=== PATIENT | male | born 1995 | race Caucasian/White ===

== ENCOUNTER 2019-10-13 12:52 | Emergency (ER) | payer BC, OTHER ==
--- NOTE | 2019-10-13 15:24 | ER ---
Nurse's Notes [facility] Name: Roxana Nixon Age: 24 yrs Sex: Male : 1995 Arrival Date: 10/13/2019 Time: 12:57 Bed 16 Private MD: Diagnosis: Acute upper respiratory infection, unspecified Presentation: 10/12 13:03 Chief complaint: Patient states: JACOB, body aches, chills since last night. Fever 101.9 ll1 at home, had to call into work today. Coronavirus screen: Proceed with normal triage. Patient denies a cough. Patient denies shortness of breath or difficulty breathing. Patient reports a measured and/or subjective temperature greater than 100.4F. Patient denies travel on a cruise ship or to a country the [facility]NOTE 3] currently lists as an affected area. Patient denies contact with known and/or suspected case of COVID-19. Ebola Screen: Patient denies travel to an Ebola-affected area in the 21 days before illness onset. Initial Sepsis Screen: Does the patient meet any 2 criteria? No. Patient's initial sepsis screen is negative. Risk Assessment: Do you want to hurt yourself or someone else? Patient reports no desire to harm self or others. Onset of symptoms was October 12, 2019. 13:03 Method Of Arrival: Ambulatory ll1 13:03 Acuity: CESAR 4 ll1 15:16 Initial Sepsis Screen: Does the patient have a suspected source of infection? Yes: ph Other: possible COVID. Historical: - Allergies: 13:04 No Known Allergies; ll1 - PSHx: 13:04 None; ll1 - Immunization history:: Adult Immunizations unknown. - Social history:: Smoking status: Patient denies any tobacco usage or history of. Patient uses alcohol, occasionally. only on a social basis. Patient/guardian denies using street drugs. Screenin:27 Abuse screen: Denies threats or abuse. Denies injuries from another. Nutritional ph screening: No deficits noted. Tuberculosis screening: No symptoms or risk factors identified. Fall Risk None identified. Assessment: 14:58 General: Appears in no apparent distress. comfortable, Behavior is calm, cooperative, ph appropriate for age, Reports chills for fever for 12-24 hours. Pain: Complains of pain in "all over". Neuro: Level of Consciousness is awake, alert, obeys commands, Oriented to person, place, time, situation. Cardiovascular: Capillary refill < 3 seconds in bilateral fingers Patient's skin is warm and dry. Respiratory: Reports cough that is non-productive, Airway is patent Respiratory effort is even, unlabored, Respiratory pattern is regular, symmetrical. GI: No signs and/or symptoms were reported involving the gastrointestinal system. Derm: Skin is intact, is healthy with good turgor, Skin is dry, Skin is normal, Skin temperature is warm. Musculoskeletal: Circulation, motion, and sensation intact. Range of motion: intact in all extremities. 16:08 Reassessment: Patient appears in no apparent distress at this time. Patient and/or ph family updated on plan of care and expected duration. Pain level reassessed. Patient is alert, oriented x 3, equal unlabored respirations, skin warm/dry/pink. Vital Signs: 13:03 BP 127 / 67; Pulse 89; Resp 17; Temp 99.3; Pulse Ox 97% ; Pain 2/10; ll1 15:15 BP 118 / 70; Pulse 84; Resp 18; Temp 98.7; Pulse Ox 99% on R/A; ph ED Course: 12:57 Patient arrived in ED. mr 13:04 Triage completed. ll1 13:05 Arm band placed on Patient notified of wait time. ll1 13:57 Ivone Morelos RN is Primary Nurse. ph 14:17 Adia Bergman FNP-C is [facility]. kb 14:17 Saulo Longoria MD is Attending Physician. kb 14:27 Patient has correct armband on for positive identification. Bed in low position. Call ph light in reach. Side rails up X 1. Pulse ox on. NIBP on. 15:16 No provider procedures requiring assistance completed. Patient did not have IV access ph during this emergency room visit. Administered Medications: No medications were administered Outcome: 15:23 Discharge ordered by . kb 16:10 Patient left the ED. ph 16:10 Discharged to home ambulatory. ph 16:10 Condition: good 16:10 Discharge instructions given to patient, Instructed on discharge instructions, follow up and referral plans. Demonstrated understanding of instructions, follow-up care. Signatures: Adia Bergman FNP-C FNP-Noni Gonzalez mr Morelos, Ivone, RN RN ph Ruben, Lyny, RN RN ll1
--- NOTE | 2019-10-13 15:24 | EDPHYS ---
Physician Documentation [facility] Name: Roxana Nixon Age: 24 yrs Sex: Male : 1995 Arrival Date: 10/13/2019 Time: 12:57 Bed 16 Private MD: ED Physician Saulo Longoria HPI: 10/12 14:40 This 24 yrs old Male presents to ER via Ambulatory with complaints of Fever. kb 14:40 The patient or guardian reports flu symptoms, low-grade fever, myalgias. Onset: The kb symptoms/episode began/occurred this morning. Severity of symptoms: At their worst the symptoms were mild, in the emergency department the symptoms have improved. Modifying factors: The symptoms are alleviated by nothing, the symptoms are aggravated by nothing. Associated signs and symptoms: Pertinent positives: fever, Pertinent negatives: chest pain, diarrhea, ear ache, nausea, rhinorrhea, sore throat, vomiting. The patient has not experienced similar symptoms in the past. The patient has not recently seen a physician. Pt reports fever, chills, bodyaches and headache that started this morning. . Historical: - Allergies: 13:04 No Known Allergies; ll1 - PSHx: 13:04 None; ll1 - Immunization history:: Adult Immunizations unknown. - Social history:: Smoking status: Patient denies any tobacco usage or history of. Patient uses alcohol, occasionally. only on a social basis. Patient/guardian denies using street drugs. ROS: 14:39 ENT: Negative for injury, pain, and discharge, Cardiovascular: Negative for chest pain, kb palpitations, and edema, Respiratory: Negative for shortness of breath, cough, wheezing, and pleuritic chest pain, Abdomen/GI: Negative for abdominal pain, nausea, vomiting, diarrhea, and constipation, MS/Extremity: Negative for injury and deformity, Skin: Negative for injury, rash, and discoloration. 14:39 Constitutional: Positive for body aches, chills, fever, malaise. 14:39 Neuro: Positive for headache. Exam: 14:39 Constitutional: This is a well developed, well nourished patient who is awake, alert, kb and in no acute distress. Head/Face: Normocephalic, atraumatic. Chest/axilla: Normal chest wall appearance and motion. Nontender with no deformity. No lesions are appreciated. Cardiovascular: Regular rate and rhythm with a normal S1 and S2. No gallops, murmurs, or rubs. Normal PMI, no JVD. No pulse deficits. Respiratory: Lungs have equal breath sounds bilaterally, clear to auscultation and percussion. No rales, rhonchi or wheezes noted. No increased work of breathing, no retractions or nasal flaring. Abdomen/GI: Soft, non-tender, with normal bowel sounds. No distension or tympany. No guarding or rebound. No evidence of tenderness throughout. Skin: Warm, dry with normal turgor. Normal color with no rashes, no lesions, and no evidence of cellulitis. MS/ Extremity: Pulses equal, no cyanosis. Neurovascular intact. Full, normal range of motion. Neuro: Awake and alert, GCS 15, oriented to person, place, time, and situation. Cranial nerves II-XII grossly intact. Motor strength 5/5 in all extremities. Sensory grossly intact. Cerebellar exam normal. Normal gait. Vital Signs: 13:03 BP 127 / 67; Pulse 89; Resp 17; Temp 99.3; Pulse Ox 97% ; Pain 2/10; ll1 15:15 BP 118 / 70; Pulse 84; Resp 18; Temp 98.7; Pulse Ox 99% on R/A; ph MDM: 14:19 Patient medically screened. kb 14:39 Data reviewed: vital signs, nurses notes. Data interpreted: Pulse oximetry: on room air kb is 97 %. Interpretation: normal. Counseling: I had a detailed discussion with the patient and/or guardian regarding: the historical points, exam findings, and any diagnostic results supporting the discharge/admit diagnosis, radiology results, the need for outpatient follow up, a family practitioner, to return to the emergency department if symptoms worsen or persist or if there are any questions or concerns that arise at home. 10/12 14:30 Order name: Flu; Complete Time: 15:23 kb 10/12 14:30 Order name: COVID-19 kb Administered Medications: No medications were administered Disposition: 19:37 Co-signature as Attending Physician, Saulo Longoria MD. [email or web address] Disposition: 10/13/19 15:23 Discharged to Home. Impression: Acute upper respiratory infection, unspecified. - Condition is Stable. - Discharge Instructions: Viral Respiratory Infection, [id number], COVID-19. - Medication Reconciliation Form, Thank You Letter, Antibiotic Education, Prescription Opioid Use, Work release form form. - Follow up: Emergency Department; When: As needed; Reason: Worsening of condition. Follow up: Private Physician; When: 2 - 3 days; Reason: Recheck today's complaints, Continuance of care, Re-evaluation by your physician. Addendum: 10/16/2019 08:56 Addendum: Contacted pt at [phone], notified of positive COVID test, answered questions, r n told health department will contact them with further instructions, patient feeling better. . Signatures: Dispatcher [employer] EDMS Adia Bergman, MECHANICAL DOOR REPAIRER-C MECHANICAL DOOR REPAIRER-Ckb Devon Cheek MD MD rn Ivone Morelos RN RN [facility], CHAPIN Bansal RN 1 Saulo Longoria MD MD 7 Corrections: (The following items were deleted from the chart) 10/12 16:10 15:23 10/13/2019 15:23 Discharged to Home. Impression: Acute upper respiratory ph infection, unspecified. Condition is Stable. Discharge Instructions: Viral Respiratory Infection, [id number], COVID-19. Forms are Medication Reconciliation Form, Thank You Letter, Antibiotic Education, Prescription Opioid Use. Follow up: Emergency Department; When: As needed; Reason: Worsening of condition. Follow up: Private Physician; When: 2 - 3 days; Reason: Recheck today's complaints, Continuance of care, Re-evaluation by your physician. kb
[2019-10-13 16:24] VITALS: BP 127/67; TEMP 99.3; O2SAT 97
== END 2019-10-13 16:10 | disposition home or self-care (01) ==
LOC: ER 12:52
DX: U07.1 COVID-19 (principal); J06.9 Acute upper respiratory infection, unspecified
CPT/HCPCS: 87804 ×2; 99283; U0001

== ENCOUNTER → 2023-05-26 | Emergency (ER) | payer BC ==
[~2023-05-26] MED LIST: ASPIRIN 81 MG CHEWABLE TABLET ONE; NA CHLORIDE 0.9% 1,000 ML ONE
[2023-05-26 03:00] LABS: Protime INR 1.06
[2023-05-26 03:02] LABS: Absolute Lymphocytes (CBC) 2.4 K/uL (0.7-4.9); Hematocrit 43.2 % (39.6-49.0); Lymphocytes % 32.3 % (15.3-44.8); MCV 84.9 fL (80-100); MPV 9.3 fL (7.6-11.3); Platelets 204 thou/uL (152-406); RBC Red Blood Cell Count 5.09 M/uL (4.33-5.43)
[2023-05-26 03:15] LABS: ALT/SGPT 31 U/L (16-61); AST/SGOT 12 U/L (15-37); Albumin 3.7 g/dL (3.4-5.0); Alkaline Phosphatase 88 U/L (45-117); BUN Blood Urea Nitrogen 10 mg/dL (7-18); Bicarbonate 30 mEq/L (21-32); Bilirubin Direct 0.1 mg/dL (0-0.2); Bilirubin Indirect, Calculated 0.5 mg/dL (0.2-0.8); Bilirubin Total 0.6 mg/dL (0.2-1.0); Glomerular Filtration Rate 83 ml/min (=/>90); Glucose Level 99 mg/dL (74-106); Magnesium 1.9 mg/dL (1.6-2.4); Potassium 3.5 mEq/L (3.5-5.1); Protein, Total 7.1 g/dL (6.4-8.2); Sodium Level 139 mEq/L (136-145); Troponin High Sensitivity 6.4 pg/mL (<58.9)
[2023-05-26 03:18] LABS: NT PRO-BNP < 5 pg/mL (<125)
--- NOTE | 2023-05-26 05:06 | ER ---
Nurse's Notes [facility] Name: Roxana Nixon Age: 27 yrs Sex: Male : 1995 Arrival Date: 05/26/2023 Time: 01:51 Bed 18 Private MD: Diagnosis: Chest pain, unspecified;Non cardiac chest pains Presentation: 05/26 02:04 Chief complaint: Patient states: I have been having left upper chest pain for the past jb4 month intermittently. Tonight is the longest it has lasted. Coronavirus screen: At this time, the client does not indicate any symptoms associated with coronavirus-19. Ebola Screen: No symptoms or risks identified at this time. Initial Sepsis Screen: Does the patient meet any 2 criteria? No. Patient's initial sepsis screen is negative. Does the patient have a suspected source of infection? No. Patient's initial sepsis screen is negative. Risk Assessment: Do you want to hurt yourself or someone else? Patient reports no desire to harm self or others. Onset of symptoms was April 20, 2023. Transition of care: patient was not received from another setting of care. 02:04 Method Of Arrival: Ambulatory jb4 02:04 Acuity: CESAR 3 jb4 Historical: - Allergies: 02:05 No Known Allergies; jb4 - PMHx: 02:05 None; jb4 - PSHx: 02:05 None; jb4 - Immunization history:: Adult Immunizations up to date. - Social history:: Smoking status: Patient denies any tobacco usage or history of. - Family history:: not pertinent. Screenin:06 [facility] ED Fall Risk Assessment (Adult) History of falling in the last 3 months, jb4 including since admission No falls in past 3 months (0 pts) Confusion or Disorientation No (0 pts). Abuse screen: Denies threats or abuse. Nutritional screening: No deficits noted. Tuberculosis screening: No symptoms or risk factors identified. Assessment: 02:06 General: Appears in no apparent distress. comfortable, Behavior is calm, cooperative, jb4 appropriate for age. Pain: Complains of pain in anterior aspect of left upper chest Pain does not radiate. Pain currently is 3 out of 10 on a pain scale. Quality of pain is described as throbbing, Pain began 1 month ago. Neuro: Level of Consciousness is awake, alert, obeys commands, Oriented to person, place, time, situation. Cardiovascular: Patient's skin is warm and dry. Respiratory: Airway is patent Respiratory effort is even, unlabored, Respiratory pattern is regular, symmetrical. GI: No signs and/or symptoms were reported involving the gastrointestinal system. : No signs and/or symptoms were reported regarding the genitourinary system. EENT: No signs and/or symptoms were reported regarding the EENT system. Derm: Skin is intact, Skin is pink, warm \T\ dry. Musculoskeletal: Circulation, motion, and sensation intact. Range of motion: intact in all extremities. 03:09 Reassessment: Patient appears in no apparent distress at this time. No changes from km8 previously documented assessment. Patient and/or family updated on plan of care and expected duration. Pain level reassessed. Patient is alert, oriented x 3, equal unlabored respirations, skin warm/dry/pink. 04:15 Reassessment: Patient appears in no apparent distress at this time. No changes from km8 previously documented assessment. Patient and/or family updated on plan of care and expected duration. Pain level reassessed. Patient is alert, oriented x 3, equal unlabored respirations, skin warm/dry/pink. 05:14 Reassessment: Patient appears in no apparent distress at this time. No changes from km8 previously documented assessment. Patient and/or family updated on plan of care and expected duration. Pain level reassessed. Patient is alert, oriented x 3, equal unlabored respirations, skin warm/dry/pink. Vital Signs: 02:04 BP 148 / 91; Pulse 72; Resp 16; Temp 98.7(O); Pulse Ox 100% on R/A; Weight 122.47 kg; jb4 Height 6 ft. 1 in. ; Pain 3/10; 02:30 BP 133 / 88; Pulse 60; Resp 16; Pulse Ox 100% on R/A; km8 03:00 BP 128 / 89; Pulse 67; Resp 16; Pulse Ox 100% on R/A; km8 05:14 BP 133 / 86; Pulse 69; Resp 16; Pulse Ox 100% on R/A; km8 02:04 Body Mass Index 35.62 (122.47 kg, 185.42 cm) [facility] 02:04 Pain Scale: Adult [facility] ED Course: 01:53 Patient arrived in ED. jj6 01:54 Mj Villatoro MD is Attending Physician. sp4 02:05 Triage completed. jb4 02:05 Arm band placed on right wrist. jb4 02:06 Patient has correct armband on for positive identification. Bed in low position. Call jb4 light in reach. Side rails up X 1. Client placed on continuous cardiac and pulse oximetry monitoring. NIBP monitoring applied. monitoring analyst on. 02:06 Patient maintains SpO2 saturation greater than 95% on room air. jb4 02:18 Solange Foreman, RN is Primary Nurse. km8 02:22 LFT's Sent. jb4 02:22 Magnesium Sent. jb4 02:22 NT PRO-BNP Sent. jb4 02:22 PT-INR Sent. jb4 02:22 Troponin HS Sent. jb4 02:22 CBC with Diff Sent. jb4 02:22 Basic Metabolic Panel Sent. jb4 02:31 No provider procedures requiring assistance completed. km8 02:40 XRAY Chest (1 view) In Process Unspecified. EDMS 03:46 CT Aorta for Dissection In Process Unspecified. EDMS 05:05 Elliott Duarte MD is Referral Physician. sp4 05:15 Provided Education on: d/c teaching. km8 05:15 IV discontinued, intact, bleeding controlled, No redness/swelling at site. Pressure km8 dressing applied. Administered Medications: 02:31 Drug: NS 0.9% IV 1000 ml IV at 1 bolus Per protocol; 1000 mL bolus Route: IV; Rate: 1 km8 bolus; Site: left antecubital; 04:00 Follow up: IV Status: Completed infusion; IV Intake: 1000ml km8 02:31 Drug: Aspirin PO Chewable Tablet 324 mg PO once; 81 mg tablets x 4 Route: PO; km8 03:19 Follow up: Response: No adverse reaction km8 Medication: 02:06 VIS not applicable for this client. jb4 Intake: 04:00 IV: 1000ml; Total: 1000ml. km8 Outcome: 05:06 Discharge ordered by . sp4 05:15 Discharged to home ambulatory, km8 05:15 Condition: good 05:15 Discharge instructions given to patient, Instructed on discharge instructions, follow up and referral plans. Demonstrated understanding of instructions, follow-up care, 05:16 Patient left the ED. km8 Signatures: Dispatcher [employer] Luis Lazcano, RN RN jb4 Tracy [email or web address] Mj Villatoro MD MD sp4 Solange Foreman RN RN km8
--- NOTE | 2023-05-26 05:06 | EDPHYS ---
Physician Documentation [facility] Name: Roxana Nixon Age: 27 yrs Sex: Male : 1995 Arrival Date: 05/26/2023 Time: 01:51 Bed 18 Private MD: ED Physician Mj Villatoro HPI: 05/26 01:55 This 27 yrs old Black Male presents to ER via Unassigned with complaints of Chest Pain. sp4 02:21 27-year-old male presents with acute onset midsternal throbbing chest pain that started sp4 at the beginning of April 2023, patient reports daily chest pains that are throbbing without palpitations or shortness of breath. History of heart murmur as a child. No history of coronary artery disease. Denied alcohol tobacco or drug use. Historical: - Allergies: 02:05 No Known Allergies; jb4 - PMHx: 02:05 None; jb4 - PSHx: 02:05 None; jb4 - Immunization history:: Adult Immunizations up to date. - Social history:: Smoking status: Patient denies any tobacco usage or history of. - Family history:: not pertinent. ROS: 02:21 Constitutional: Negative for fever, chills, and weight loss, positive chest pain sp4 02:21 All other systems are negative, Exam: 02:21 Constitutional: This is a well developed, well nourished patient who is awake, alert, sp4 and in no acute distress. Head/Face: Normocephalic, atraumatic. Eyes: Pupils equal round and reactive to light, extra-ocular motions intact. Lids and lashes normal. Conjunctiva and sclera are not injected. Cornea within normal limits. Periorbital areas with no swelling, redness, or edema. ENT: Nares patent. No nasal discharge, no septal abnormalities noted. Tympanic membranes are normal and external auditory canals are clear. Oropharynx with no redness, swelling, or masses, exudates, or evidence of obstruction, uvula midline. Mucous membranes moist. Neck: Trachea midline, no thyromegaly or masses palpated, and no cervical lymphadenopathy. Supple, full range of motion without nuchal rigidity, or vertebral point tenderness. Chest/axilla: Normal chest wall appearance and motion. Nontender with no deformity. No lesions are appreciated. Cardiovascular: Regular rate and rhythm with a normal S1 and S2. No gallops, murmurs, or rubs. Normal PMI, no JVD. No pulse deficits. Respiratory: Lungs have equal breath sounds bilaterally, clear to auscultation and percussion. No rales, rhonchi or wheezes noted. No increased work of breathing, no retractions or nasal flaring. Abdomen/GI: Soft, non-tender, with normal bowel sounds. No distension or tympany. No guarding or rebound. No evidence of tenderness throughout. Back: No spinal tenderness. No costovertebral tenderness. Skin: Warm, dry with normal turgor. Normal color with no rashes, no lesions, and no evidence of cellulitis. MS/ Extremity: Pulses equal, no cyanosis. Neurovascular intact. Full, normal range of motion. Neuro: Awake and alert, GCS 15, oriented to person, place, time, and situation. Cranial nerves II-XII grossly intact. Motor strength 5/5 in all extremities. Sensory grossly intact. Psych: Awake, alert, with orientation to person, place and time. Behavior, mood, and affect are within normal limits 02:27 ECG was reviewed by the Attending Physician. EKG at 0 223 reveals normal sinus Rate sp4 73 Vital Signs: 02:04 BP 148 / 91; Pulse 72; Resp 16; Temp 98.7(O); Pulse Ox 100% on R/A; Weight 122.47 kg; jb4 Height 6 ft. 1 in. ; Pain 3/10; 02:30 BP 133 / 88; Pulse 60; Resp 16; Pulse Ox 100% on R/A; km8 03:00 BP 128 / 89; Pulse 67; Resp 16; Pulse Ox 100% on R/A; km8 05:14 BP 133 / 86; Pulse 69; Resp 16; Pulse Ox 100% on R/A; km8 02:04 Body Mass Index 35.62 (122.47 kg, 185.42 cm) jb4 02:04 Pain Scale: Adult jb4 MDM: 01:54 Patient medically screened. sp4 04:59 ED course: EXAM: CTAngiography Chest, Abdomen and Pelvis With Intravenous Contrast sp4 CLINICAL HISTORY: The patient is 27 years old and is Male; atypical chest pain TECHNIQUE: Axial computed tomographic angiography images of the chest, abdomen and pelvis with intravenous contrast. Sagittal and coronal reformatted images were created and reviewed. This CT exam was performed using one or more of the following dose reduction techniques: automated exposure control, adjustment of the mA and/or kV according to patient size, and/or use of iterative reconstruction technique. MIP reconstructed images were created and reviewed. COMPARISON: No relevant prior studies available. FINDINGS: VASCULATURE: Aorta: No acute findings. No aortic aneurysm. No dissection. Pulmonary arteries: Unremarkable as visualized. No pulmonary embolism is identified. Great vessels of aortic arch: No acute findings. No dissection. No arterial occlusion or significant stenosis. Celiac trunk and mesenteric arteries: No acute findings. No occlusion or significant stenosis. Renal arteries: No acute findings. No occlusion or significant stenosis. Iliac arteries: No acute findings. No occlusion or significant stenosis. CHEST: Lungs: Unremarkable. No mass. No consolidation. Pleural space: Unremarkable. No significant effusion. No pneumothorax. Heart: Unremarkable. No cardiomegaly. No significant pericardial effusion. ABDOMEN: Liver: Unremarkable. No mass. Gallbladder and bile ducts: Unremarkable. No calcified stones. No ductal dilation. Pancreas: Unremarkable. No ductal dilation. No mass. Spleen: Unremarkable. No splenomegaly. Adrenals: Unremarkable. No mass. Kidneys and ureters: Unremarkable. No hydronephrosis. No solid mass. Stomach and bowel: Unremarkable. No obstruction. No mucosal thickening. PELVIS: Appendix: No findings to suggest acute appendicitis. Bladder: Unremarkable. No mass. Reproductive: Unremarkable as visualized. CHEST, ABDOMEN and PELVIS: Intraperitoneal space: Unremarkable. No significant fluid collection. No free air. Bones/joints: No acute fracture. No dislocation. Soft tissues: Unremarkable. Lymph nodes: Unremarkable. No enlarged lymph nodes. IMPRESSION: No acute findings in the arterial system of the chest, abdomen or pelvis. No aortic dissection. Electronically signed by: Carlos Nichols MD 05/26/2023 04:32 AM. ED course: EXAM DESCRIPTION: Chest Single View CLINICAL HISTORY: CHEST PAIN COMPARISON: None. FINDINGS: Single frontal radiograph view of the chest. Cardiomediastinal silhouette: Normal size and contour. Lungs: No consolidation, pneumothorax, or pleural effusion. Bones: No acute osseous abnormality. Leads overlie the chest. Upper abdomen: No abnormality identified. IMPRESSION: 1. No acute pulmonary process identified.. 05:04 Differential diagnosis: acute pericarditis, anxiety, coronary artery disease chest wall sp4 pain, congestive heart failure costochondritis, esophagitis. HEART Score: History: Slightly Suspicious (0), ECG: Normal (0), Age: < or = 45 years (0), Risk Factors: No Risk Factors Known (0), Troponin: < or = 1 x Normal Limit (0), Total Score = 0. Data reviewed: vital signs, nurses notes, old medical records, lab test result(s), EKG, radiologic studies, CT scan, plain films. ED course: No emergent problems found today. Normal CT, normal workup overall, will refer to Dr. Duarte for outpatient work up . . 05/26 01:54 Order name: Basic Metabolic Panel; Complete Time: 04:58 sp4 05/26 01:54 Order name: CBC with Diff; Complete Time: 04:58 4 05/26 01:54 Order name: LFT's; Complete Time: 04:58 sp4 05/26 01:54 Order name: Magnesium; Complete Time: 04:58 4 05/26 01:54 Order name: NT PRO-BNP; Complete Time: 04:58 4 05/26 01:54 Order name: PT-INR; Complete Time: 04:58 sp4 05/26 01:54 Order name: Troponin HS; Complete Time: 04:58 sp4 05/26 01:54 Order name: XRAY Chest (1 view) 05/26 02:18 Order name: CT Aorta for Dissection 05/26 01:54 Order name: EKG; Complete Time: 01:55 4 05/26 01:54 Order name: Cardiac monitoring; Complete Time: 02:18 4 05/26 01:54 Order name: EKG - Nurse/Tech; Complete Time: 02:26 sp4 05/26 01:54 Order name: IV Saline Lock; Complete Time: 02:18 4 05/26 01:54 Order name: Labs collected and sent; Complete Time: 02:18 sp4 05/26 01:54 Order name: O2 Per Protocol; Complete Time: 02:18 4 05/26 01:54 Order name: O2 Sat Monitoring; Complete Time: 02:18 sp4 EC:27 Rate is 73 beats/min. Rhythm is regular, Normal Sinus Rhythm. QRS [place] is Normal. [place] sp4 interval is normal. QRS interval is normal. QT interval is normal. No Q waves. T waves are Normal. No ST changes noted. Clinical impression: Normal ECG. Interpreted by me. Reviewed by me. Administered Medications: 02:31 Drug: NS 0.9% IV 1000 ml IV at 1 bolus Per protocol; 1000 mL bolus Route: IV; Rate: 1 km8 bolus; Site: left antecubital; 04:00 Follow up: IV Status: Completed infusion; IV Intake: 1000ml [facility] 02:31 Drug: Aspirin PO Chewable Tablet 324 mg PO once; 81 mg tablets x 4 Route: PO; km8 03:19 Follow up: Response: No adverse reaction km8 Disposition Summary: 05/26/23 05:06 Discharge Ordered Notes: Location: Home sp4 Problem: new sp4 Symptoms: have improved sp4 Condition: Stable sp4 Diagnosis - Chest pain, unspecified sp4 - Non cardiac chest pains sp4 Followup: sp4 - With: Elliott Duarte MD - When: 7 - 10 days - Reason: Recheck today's complaints Discharge Instructions: - Discharge Summary Sheet sp4 - Nonspecific Chest Pain, Adult, [id number] sp4 Forms: - Patient Portal Instructions sp4 Signatures: Dispatcher [employer] Luis Lazcano, RN RN jb4 Mj Villaotro MD MD sp4 Solange Foreman RN RN km8
--- NOTE | 2023-05-26 09:18 | RAD REPORT ---
EXAM DESCRIPTION: CT - Angio Aorta For Dissection - 05/26/2023 6:16 am CLINICAL HISTORY: The patient is 27 years old and is Male; atypical chest pain TECHNIQUE: Axial computed tomographic angiography images of the chest, abdomen and pelvis with intra venous contrast. Sagittal and coronal reformatted images were created and reviewed. This CT exam was performed using one or more of the following dose reduction techniques: automated exposure cont rol, adjustment of the mA and/or kV according to patient size, and/or use of iterative reconstruction technique. MIP reconstructed images were created and reviewed. COMPARISON: No relevant prior studies available. FINDINGS: VASCULATURE: Aorta: No acute findings. No aortic aneurysm. No dissection. Pulmonary arteries: Unremarkable as visualized. No pulmonary embolism is identified. Great vessels of aortic arch: No acute findings. No dissection. No arterial occlusion or sign ificant stenosis. Celiac trunk and mesenteric arteries: No acute findings. No occlusion or significant stenosis. Renal arteries: No acute findings. No occlusion or significant stenosis. Iliac arteries: No acute findings. No occlusion or significant stenosis. CHEST: Lungs: Unremarkable. No mass. No consolidation. Pleural space: Unremarkable. No significant effusion. No pneumothorax. Heart: Unremarkable. No cardiomegaly. No significant pericardial effusion. ABDOMEN: Liver: Unremarkable. No mass. Gallbladder and bile ducts: Unremarkable. No calcified stones. No ductal dilation. Pancreas: Unremarkable. No ductal dilation. No mass. Spleen: Unremarkable. No splenomegaly. Adrenals: Unremarkable. No mass. Kidneys and ureters: Unremarkable. No hydronephrosis. No solid mass. Stomach and bowel: Unremarkable. No obstruction. No mucosal thickening. PELVIS: Appendix: No findings to suggest acute appendicitis. Bladder: Unremarkable. No mass. Reproductive: Unremarkable as visualized. CHEST, ABDOMEN and PELVIS: Intraperitoneal space: Unremarkable. No significant fluid collection. No free air. Bones/joints: No acute fracture. No dislocation. Soft tissues: Unremarkable. Lymph nodes: Unremarkable. No enlarged lymph nodes. IMPRESSION: No acute findings in the arterial system of the chest, abdomen or pelvis. No aortic di ssection. Electronically signed by: Carlos Nichols MD 05/26/2023 04:32 AM AWNING HANGER Due to temporary technical issues with the PACS/Fluency reporting system, reports are being signed by the in house radiologists without review as a courtesy to insure prompt reporting. The interpreting radiologist is fully responsible for the content of the report.
--- NOTE | 2023-05-26 12:54 | EKG ---
Test Date: 2023-05-26 Test Time: 02:23:09 Long Line Teamster: GIOVANNI MEASUREMENT RESULTS: Intervals: Rate: 73 OK: 180 QRSD: 100 QT: 360 QTc: 396 [place]: P: 70 OK: 180 QRS: 80 T: 27 INTERPRETIVE STATEMENTS: Sinus rhythm with occasional premature ventricular complexes Otherwise normal ECG No previous ECG available for comparison Electronically Signed On 05-26-23 12:52:20 DRAFTER CASTINGS by Elliott Duarte
--- NOTE | 2023-05-26 14:28 | RAD REPORT ---
EXAM DESCRIPTION: RAD - Chest Single View - 05/26/2023 2:39 am CLINICAL HISTORY: CHEST PAIN COMPARISON: None. FINDINGS: Single frontal radiograph view of the chest. Cardiomediastinal silhouette: Normal size and contour. Lungs: No consolidation, pneumothorax, or pleural effusion. Bones: No acute osseous abnormality. Leads overlie the chest. Upper abdomen: No abnormality identified. IMPRESSION: 1. No acute pulmonary process identified. Electronically signed by: Sumeet Patel DO 05/26/2023 03:11 AM SPINDLE REPAIRER M Due to temporary technical issues with the PACS/Fluency reporting system, reports are being signed by the in house radiologists without review as a courtesy to insure prompt reporting. The interpreting radiologist is fully responsible for the content of the report.
[2023-05-27 10:57] VITALS: BP 133/86; TEMP 98.7; O2SAT 100
== END ==
LOC: ER 01:51
DX: R07.89 Other chest pain (principal)
CPT/HCPCS: 93005; 85025; 80048; 36415; 83735; 85610; 80076; 84484; 83880; 71275; 74175; 71045; Q9967; J7030